=== PATIENT | female | born 1965 | race Caucasian/White ===

== ENCOUNTER 2018-03-26 11:27 | Emergency (ER) | payer OTHER ==
[~2018-03-26] VITALS: Ht 157.5 cm; Wt 79.4 kg
--- NOTE | 2018-03-26 12:05 | RAD ---
CT of the head without contrast, 03/26/2018: HISTORY: Left-sided weakness The ventricles are within normal limits in size. There is no shift of the midline structures. There is no evidence of acute intracranial hemorrhage or mass effect. There are old postsurgical changes with surgical implants involving the frontal bone at the level of the frontal sinuses. IMPRESSION: No acute intracranial abnormality is detected. Note: The findings were called to personnel in the [facility] ER at 12:01 PM on 03/26/2018. Electronically signed by: Junior Silver MD (03/26/2018 12:02 PM) [facility]
[2018-03-26 12:29] LABS: BASO % 1 % (0-3); EOS # 0.1 x10^3/uL (0.0-0.7); EOS % 2 % (0-3); HEMATOCRIT 37.5 % (36.0-47.0); HEMOGLOBIN 12.8 g/dL (12.0-15.5); LYMPH # 1.7 x10^3/uL (1.0-4.8); LYMPH % 30 % (24-48); MEAN CORPUSCULAR HEMOGLOBIN 32 pg (25-35); MEAN CORPUSCULAR HGB CONC 34 g/dL (31-37); MEAN CORPUSCULAR VOLUME 93 fL (79-100); MONO # 0.4 x10^3/uL (0.0-1.1); MONO % 7 % (0-9); NEUT # 3.3 x10^3uL (1.8-7.7); NEUT % 60 % (31-73); PLATELET COUNT 408 x10^3/uL (140-400); RED BLOOD COUNT 4.04 x10^6/uL (3.50-5.40); RED CELL DISTRIBUTION WIDTH 13.3 % (11.5-14.5); WHITE BLOOD COUNT 5.5 x10^3/uL (4.0-11.0)
--- NOTE | 2018-03-26 12:33 | RAD ---
CT LUMBAR SPINE WO CONTRAST dated 03/26/2018 11:53 AM Indication: Pain.SCIATICA, RT HIP PAIN FOR FOUR DAYS, NO SURGERY TO BACK OR RECENT INJURY.
. Comparison: 11/12/2012 Technique: Contiguous axial imaging of the lumbar spine performed with thin cut coronal and sagittal reconstruction. One or more of the following individualized dose reduction techniques were utilized for this examination: 1. Automated exposure control 2. Adjustment of the mA and/or kV according to patient size 3. Use of iterative reconstruction technique Findings: Slight anterolisthesis of L4 on L5, new from prior study. Sagittal alignment is otherwise anatomic. There is a prominent Schmorl's node at the inferior endplate of L3, new from prior exam. Additional Schmorl's nodes at the inferior endplate of L1 are new. Vertebral body heights are maintained. Mild to moderate hypertrophic change of the superior and inferior endplates throughout. At L1-L2,, there is moderate disc space narrowing with mild broad-based posterior disc osteophyte complex and mild hypertrophic change of the facet joints/ligament flavum. Central canal is narrowed to about 10 mm AP dimension. Foramina are adequate. At L2-L3, there is mild broad-based bulge with mild disc space narrowing and endplate hypertrophic changes. The central canal and foramen are adequate. At L3-L4, minimal broad-based bulge with mild hypertrophic change of the facet joints. The central canal and foramen are adequate. At L4-L5, grade 1 anterolisthesis with minimal broad-based bulge moderate hypertrophic change of the facet joints. Findings combine to result in mild central stenosis with mild to moderate right foraminal stenosis and mild left foraminal stenosis. At L5-S1, mild disc space narrowing with vacuum disc phenomenon. Metal broad-based bulge with mild hypertrophic change of the facet joints, left greater than right. There is moderate left foraminal stenosis and mild foraminal narrowing on the right. Central canal is adequate. Images of the retroperitoneum show no significant abnormality. 8mm calcific stone at the lower pole right kidney. IMPRESSION: 1. No acute bony or soft tissue abnormality. 2. Mild to moderate multilevel spondylosis, progressed from prior study. There is a degenerative listhesis at L4-L5 that is new from prior exam. Mild central stenosis and moderate right foraminal stenosis at this level. 3. Milder spondylotic changes of the remaining levels. Please see above report for full details. Electronically signed by: Andres Coyle MD (03/26/2018 12:30 PM) [id number]
[2018-03-26 12:52] LABS: ALBUMIN 4.1 g/dL (3.4-5.0); ALBUMIN/GLOBULIN RATIO 1.1 (1.0-1.7); CALCIUM 9.5 mg/dL (8.5-10.1); CREATININE 0.6 mg/dL (0.6-1.0); GFR 103.8; POTASSIUM 3.7 mmol/L (3.5-5.1); TOTAL BILIRUBIN 0.5 mg/dL (0.2-1.0); TOTAL PROTEIN 7.9 g/dL (6.4-8.2)
[2018-03-26] MEDS ORDERED: LORazepam 2 MG/ML VIAL IV ONE (13:00)
[2018-03-26] MEDS ORDERED: KETOROLAC 30 MG/ML VIAL. IV ONE (13:30)
[2018-03-26] MEDS ORDERED: methylPREDNISolone SOD SUCC PF 125 MG/2 ML VIAL. IV ONE (13:45)
[2018-03-26] MEDS ORDERED: CYCL-331 PO (14:06)
[2018-03-26] MEDS ORDERED: TRAM-48 PO (14:06)
--- NOTE | 2018-03-26 14:07 | PHYS DOC ---
Past History Past Medical History: High Cholesterol, Hypertension, Kidney Stones Past Surgical History: Cholecystectomy, , Other Alcohol Use: Rarely Drug Use: None Adult General Chief Complaint Chief Complaint: left-sided numbness HPI HPI Patient is a 53 year old female who presents with complaining of left-sided numbness. Patient states she has had left lower back and hip pain for the last 3 days without injury as a constant pain that getting worse with movement and took Tylenol and ibuprofen for the pain. Patient wasn't for today and suddenly at 0930 fifth left facial numbness with radiation to the neck and left shoulder and then left lower extremity as a constant problem without weakness that did not change since it was started less than 2 hours ago. Patient denies headache, blurred vision, nausea and vomiting, fever and chills, chest pain, shortness of breath, history of the same problem. Review of Systems Review of Systems Constitutional: Denies fever or chills [] Eyes: Denies change in visual acuity, redness, or eye pain [] HENT: Denies nasal congestion or sore throat [] Respiratory: Denies cough or shortness of breath [] Cardiovascular: No additional information not addressed in HPI [] GI: Denies abdominal pain, nausea, vomiting, bloody stools or diarrhea [] : Denies dysuria or hematuria [] Musculoskeletal: Reports back pain and joint pain Integument: Denies rash or skin lesions [] Neurologic: Denies headache, focal weakness, reports sensory changes [] Endocrine: Denies polyuria or polydipsia [] All other systems were reviewed and found to be within normal limits, except as documented in this note. Current Medications Current Medications Current Medications Medications (Trade) Dose Ordered Sig/Bob Start Time Stop Time Status Last Admin Dose Admin Ketorolac Tromethamine (Toradol 30mg Vial) 30 mg 1X ONCE 03/26/18 13:30 03/26/18 13:31 DC 03/26/18 13:36 30 MG Lorazepam (Ativan) 0.5 mg 1X ONCE 03/26/18 13:00 03/26/18 13:01 DC 03/26/18 12:49 0.5 MG Methylprednisolone Sodium Succinate (SOLU-Medrol 125MG VIAL) 125 mg 1X ONCE 03/26/18 13:45 03/26/18 13:46 DC 03/26/18 13:38 125 MG Allergies Allergies Allergies Coded Allergies Type Severity Reaction Last Updated Verified No Known Drug Allergies 03/26/18 No Physical Exam Physical Exam Constitutional: Well developed, well nourished, mild distress, non-toxic appearance. [] HENT: Normocephalic, atraumatic, bilateral external ears normal, oropharynx moist, no oral exudates, nose normal. [] Eyes: PERRLA, EOMI, conjunctiva normal, no discharge. [] Neck: Normal range of motion, no tenderness, supple, no stridor. [] Cardiovascular:Heart rate regular rhythm, no murmur [] Lungs & Thorax: Bilateral breath sounds clear to auscultation [] Abdomen: Bowel sounds normal, soft, no tenderness, no masses, no pulsatile masses. [] Skin: Warm, dry, no erythema, no rash. [] Back: No tenderness, no CVA tenderness. [] Extremities: Painful range of motion of left lower extremity, no tenderness, no cyanosis, no clubbing, ROM intact, no edema. [] Neurologic: Alert and oriented X 3, normal motor function, subjective paresthesia of left side of face and upper and lower extremity, no focal deficits noted, NIHS of 1 Psychologic: Affect normal, judgement normal, mood normal. [] Current Patient Data Vital Signs Vital Signs Date Time Temp Pulse Resp B/P (MAP) Pulse Ox O2 Delivery O2 Flow Rate FiO2 03/26/18 13:44 64 16 117/82 (94) 97 Room Air 03/26/18 11:35 97.8 Lab Results Laboratory Tests Test 03/26/18 12:02 03/26/18 12:15 Glucose (Fingerstick) 104 mg/dL (70-99) H White Blood Count 5.5 x10^3/uL (4.0-11.0) Red Blood Count 4.04 x10^6/uL (3.50-5.40) Hemoglobin 12.8 g/dL (12.0-15.5) Hematocrit 37.5 % (36.0-47.0) Mean Corpuscular Volume 93 fL (79-100) Mean Corpuscular Hemoglobin 32 pg (25-35) Mean Corpuscular Hemoglobin Concent 34 g/dL (31-37) Red Cell Distribution Width 13.3 % (11.5-14.5) Platelet Count 408 x10^3/uL (140-400) H Neutrophils (%) (Auto) 60 % (31-73) Lymphocytes (%) (Auto) 30 % (24-48) Monocytes (%) (Auto) 7 % (0-9) Eosinophils (%) (Auto) 2 % (0-3) Basophils (%) (Auto) 1 % (0-3) Neutrophils # (Auto) 3.3 x10^3uL (1.8-7.7) Lymphocytes # (Auto) 1.7 x10^3/uL (1.0-4.8) Monocytes # (Auto) 0.4 x10^3/uL (0.0-1.1) Eosinophils # (Auto) 0.1 x10^3/uL (0.0-0.7) Basophils # (Auto) 0.0 x10^3/uL (0.0-0.2) Prothrombin Time 9.9 SEC (9.4-11.4) Prothrombin Time INR 1.0 (0.9-1.1) PTT 26 SEC (23-33) Sodium Level 141 mmol/L (136-145) Potassium Level 3.7 mmol/L (3.5-5.1) Chloride Level 101 mmol/L (98-107) Carbon Dioxide Level 34 mmol/L (21-32) H Anion Gap 6 (6-14) Blood Urea Nitrogen 13 mg/dL (7-20) Creatinine 0.6 mg/dL (0.6-1.0) Estimated GFR (Cockcroft-Gault) 103.8 BUN/Creatinine Ratio 22 (6-20) H Glucose Level 102 mg/dL (70-99) H Calcium Level 9.5 mg/dL (8.5-10.1) Total Bilirubin 0.5 mg/dL (0.2-1.0) Aspartate Amino Transferase (AST) 18 U/L (15-37) Alanine Aminotransferase (ALT) 20 U/L (14-59) Alkaline Phosphatase 93 U/L (46-116) Creatine Kinase 105 U/L (26-192) Creatine Kinase MB (Mass) 1.6 ng/mL (0.0-3.6) Creatine Kinase MB Relative Index 1.5 % (0-4) Troponin I Quantitative < 0.017 ng/mL (0-0.055) Total Protein 7.9 g/dL (6.4-8.2) Albumin 4.1 g/dL (3.4-5.0) Albumin/Globulin Ratio 1.1 (1.0-1.7) EKG EKG EKG interpreted by me. EKG at 1208 showed a sinus rhythm at rate of 72, poor R- wave progress at anteroseptal leads, no acute ST and T-wave abnormalities Radiology/Procedures Radiology/Procedures [][address] [address] IMAGING REPORT Signed PATIENT: JOVITA CAMACHO ACCOUNT: [id number] : 1965 LOCATION: ER AGE: 53 SEX: F EXAM STATUS: REG ER ORD. PHYSICIAN: MARQUITA SPENCER MD REASON: left side numbness PROCEDURE: CT CODE STROKE HEAD WO CT of the head without contrast, 03/26/2018: HISTORY: Left-sided weakness The ventricles are within normal limits in size. There is no shift of the midline structures. There is no evidence of acute intracranial hemorrhage or mass effect. There are old postsurgical changes with surgical implants involving the frontal bone at the level of the frontal sinuses. IMPRESSION: No acute intracranial abnormality is detected. Note: The findings were called to personnel in the [facility] ER at 12:01 PM on 03/26/2018. Electronically signed by: Junior Silver MD (03/26/2018 12:02 PM) [facility] DICTATED AND SIGNED BY: JUNIOR SILVER MD DATE: 03/26/18 1151 CC: MARQUITA SPENCER MD; PANKAJ KIRBY ~ [address] [address] IMAGING REPORT Signed PATIENT: JOVITA CAMACHO ACCOUNT: [id number] : 1965 LOCATION: ER AGE: 53 SEX: F EXAM STATUS: REG ER ORD. PHYSICIAN: MARQUITA SPENCER MD REASON: left side numbness PROCEDURE: CT LUMBAR SPINE WO CONTRAST CT LUMBAR SPINE WO CONTRAST dated 03/26/2018 11:53 AM Indication: Pain.SCIATICA, RT HIP PAIN FOR FOUR DAYS, NO SURGERY TO BACK OR RECENT INJURY.
. Comparison: 11/12/2012 Technique: Contiguous axial imaging of the lumbar spine performed with thin cut coronal and sagittal reconstruction. One or more of the following individualized dose reduction techniques were utilized for this examination: 1. Automated exposure control 2. Adjustment of the mA and/or kV according to patient size 3. Use of iterative reconstruction technique Findings: Slight anterolisthesis of L4 on L5, new from prior study. Sagittal alignment is otherwise anatomic. There is a prominent Schmorl's node at the inferior endplate of L3, new from prior exam. Additional Schmorl's nodes at the inferior endplate of L1 are new. Vertebral body heights are maintained. Mild to moderate hypertrophic change of the superior and inferior endplates throughout. At L1-L2,, there is moderate disc space narrowing with mild broad-based posterior disc osteophyte complex and mild hypertrophic change of the facet joints/ligament flavum. Central canal is narrowed to about 10 mm AP dimension. Foramina are adequate. At L2-L3, there is mild broad-based bulge with mild disc space narrowing and endplate hypertrophic changes. The central canal and foramen are adequate. At L3-L4, minimal broad-based bulge with mild hypertrophic change of the facet joints. The central canal and foramen are adequate. At L4-L5, grade 1 anterolisthesis with minimal broad-based bulge moderate hypertrophic change of the facet joints. Findings combine to result in mild central stenosis with mild to moderate right foraminal stenosis and mild left foraminal stenosis. At L5-S1, mild disc space narrowing with vacuum disc phenomenon. Metal broad-based bulge with mild hypertrophic change of the facet joints, left greater than right. There is moderate left foraminal stenosis and mild foraminal narrowing on the right. Central canal is adequate. Images of the retroperitoneum show no significant abnormality. 8mm calcific stone at the lower pole right kidney. IMPRESSION: 1. No acute bony or soft tissue abnormality. 2. Mild to moderate multilevel spondylosis, progressed from prior study. There is a degenerative listhesis at L4-L5 that is new from prior exam. Mild central stenosis and moderate right foraminal stenosis at this level. 3. Milder spondylotic changes of the remaining levels. Please see above report for full details. Electronically signed by: Andres Coyle MD (03/26/2018 12:30 PM) [facility] DICTATED AND SIGNED BY: ANDRES COYLE MD DATE: 03/26/18 1224 CC: MARQUITA SPENCER MD; PANKAJ KIRBY ~ Course & Med Decision Making Course & Med Decision Making Pertinent Labs and Imaging studies reviewed. (See chart for details) Evaluation of patient in ER showed 53-year-old female patient with complaining of left facial and upper and lower extremity numbness about 2 hours prior to arrival to ER. Code stroke was activated. Patient had in NIHS 1 and was not a candidate for TPA as a very low NIH number. Patient treated with Ativan and here facial and upper extremity numbness resolved. She'll continue to complaining of numbness of left great toe that was related to diagnosis of sciatica neuropathy. Plan discharge patient home to diagnose of sciatica pain and instruction to apply ice on her back and follow with her primary care physician. Dragon Disclaimer Dragon Disclaimer This electronic medical record was generated, in whole or in part, using a voice recognition dictation system. Departure Departure: Impression: Primary Impression: Acute left-sided back pain with sciatica Additional Impressions: Paresthesia Spinal stenosis Disposition: 01 HOME, SELF-CARE (at 1402) Condition: IMPROVED Referrals: PANKAJ KIRBY (PCP) Patient Instructions: Sciatica, Spinal Stenosis Additional Instructions: Drink plenty of liquids Follow-up with your primary care physician in 3-5 days Return to ER if not getting better Apply ice on affected area Scripts Tramadol Hcl (ULTRAM) 50 Mg Tablet 50 MG PO PRN Q6HRS PRN for PAIN, #20 TAB Prov: MARQUITA SPENCER MD 03/26/18 Cyclobenzaprine Hcl (CYCLOBENZAPRINE HCL) 10 Mg Tablet 1 TAB PO TID, #30 TAB Prov: MARQUITA SPENCER MD 03/26/18 Problem Qualifiers MARQUITA SPENCER MD Mar 26, 2018 14:07
[2018-03-26 14:10] VITALS: BP 105/61
--- NOTE | 2018-03-26 16:05 | EKG ---
[address] [address] Test Date: 2018-03-26 Test Time: 12:08:58 Pat Name: JOVITA CAMACHO Department: Room: Gender: F Mine Inspector: : 1965 Requested By: MARQUITA SPENCER Order Number: [id number] Reading MD: Jaskaran Thakur MD Measurements Intervals [place] Rate: 72 P: 31 SC: 154 QRS: 14 QRSD: 80 T: 33 QT: 364 QTc: 400 Interpretive Statements SINUS RHYTHM Electronically Signed On 03-27-2018 11:24:55 CDT by Jaskaran Thakur MD
== END 2018-03-26 14:18 | disposition home or self-care (01) ==
LOC: ER 11:27
DX: M54.42 Lumbago with sciatica, left side (principal); R20.2 Paresthesia of skin; M48.061 Spinal stenosis, lumbar region without neurogenic claudication; M25.551 Pain in right hip; I10 Essential (primary) hypertension; E78.00 Pure hypercholesterolemia, unspecified; Z90.49 Acquired absence of other specified parts of digestive tract; Z87.442 Personal history of urinary calculi
CPT/HCPCS: 36415; 70450; 72131; 80053; 82553; 82947; 84484; 85025; 85610; 85730; 93005; 96374; 96375; 99285; J1885; J2060; J2930

== ENCOUNTER → 2019-01-08 | Day surgery (SDC) | payer OTHER ==
[~2019-01-08] MED LIST: ALBUTEROL SULFATE 2.5 MG/3 ML NEBU. NEB PRN; ASPI325T8 PO; ATROPINE 0.5 MG/5 ML DISP.SYRIN. IV PRN; CYCL-331 PO; HYDR-2145 PO; IV RINGERS SOLUTION,LACTATED 1,000 ML IV SCH; LIDOCAINE 2% PF Vial for OR 5 ML VIAL. ONE; LOSA100T2 PO; NALOXONE 0.4 MG/ML VIAL. IV PRN; OMEP20CA10 PO; ONDANSETRON PF 4 MG/2 ML VIAL. IV PRN; PROPOFOL 40 ML IV ONE; SIMV20TA3 PO; TRAM-48 PO; diphenhydrAMINE 50 MG/ML VIAL IV PRN
[2019-01-08 08:52] VITALS: BP 144/81
== END | disposition home or self-care (01) ==
LOC: SURG 06:53
PROVIDERS: ATTEND Internal Medicine Gastroenterology
DX: Z12.11 Encounter for screening for malignant neoplasm of colon (principal); K57.30 Diverticulosis of large intestine without perforation or abscess without bleeding; I10 Essential (primary) hypertension; E78.5 Hyperlipidemia, unspecified; M25.50 Pain in unspecified joint; G25.81 Restless legs syndrome; Z90.49 Acquired absence of other specified parts of digestive tract; Z98.890 Other specified postprocedural states; Z87.442 Personal history of urinary calculi
CPT/HCPCS: 45378; J2704; J7120; J2001

== ENCOUNTER → 2020-03-10 | Outpatient (CLI) | payer OTHER ==
[2019-01-08 08:52] VITALS: BP 144/81
[~2020-03-10] MED LIST changes: -ALBUTEROL SULFATE 2.5 MG/3 ML NEBU. NEB PRN; -ATROPINE 0.5 MG/5 ML DISP.SYRIN. IV PRN; -IV RINGERS SOLUTION,LACTATED 1,000 ML IV SCH; -LIDOCAINE 2% PF Vial for OR 5 ML VIAL. ONE; -NALOXONE 0.4 MG/ML VIAL. IV PRN; -OMEP20CA10 PO; +OMEP20CA16 PO; -ONDANSETRON PF 4 MG/2 ML VIAL. IV PRN; -PROPOFOL 40 ML IV ONE; +SIMV20TA18 PO; -SIMV20TA3 PO; -diphenhydrAMINE 50 MG/ML VIAL IV PRN
--- NOTE | 2020-03-10 16:37 | RAD ---
INDICATION: Osteoporosis screening. Postmenopausal screening COMPARISON: None. TECHNIQUE: Bone densitometry was performed through the lumbar spine and proximal femur. FINDINGS: Lumbar Spine: BMD: 1.46 T-Score: 2.4 Proximal Femur: BMD: 1.06 T-Score: 0.8 IMPRESSION: 1. Lumbar spine falls within the normal range. 2. Proximal femur falls within the normal range. Electronically signed by: Otoniel Ray MD (03/10/2020 4:34 PM) [id number]
--- NOTE | 2020-03-12 16:38 | RAD ---
DATE: 03/10/2020 3:06 PM EXAM: DIGITAL SCREEN BILAT W/CAD HISTORY: Screening COMPARISON: 11/22/2018 Bilateral full field craniocaudal and mediolateral oblique images were obtained using digital technique. This study was interpreted with the benefit of Computerized Aided Detection (CAD). FINDINGS: Breast Density: SCATTERED The breast parenchyma shows scattered fibroglandular densities. Breast parenchyma level B No suspicious masses, microcalcifications or architectural distortion is present to suggest malignancy in either breast. The visualized axillae are unremarkable. IMPRESSION: No mammographic evidence of malignancy. BI-RADS CATEGORY: 1 NEGATIVE RECOMMENDED FOLLOW-UP: 12M 12 MONTH FOLLOW-UP Annual screening mammography is recommended, unless clinically indicated sooner based on symptoms or change in physical exam. PQRS compliance statement: Patient information was entered into a reminder system with a target due date for the next mammogram. Mammography is a sensitive method for finding small breast cancers, but it does not detect them all and is not a substitute for careful clinical examination. A negative mammogram does not negate a clinically suspicious finding and should not result in delay in biopsying a clinically suspicious abnormality. "Our facility is accredited by the [employer] Mammography Program."
== END | disposition home or self-care (01) ==
LOC: DXRAD 14:54
PROVIDERS: ATTEND Physician Assistant Medical
DX: Z12.31 Encounter for screening mammogram for malignant neoplasm of breast (principal); Z00.00 Encounter for general adult medical examination without abnormal findings; Z13.820 Encounter for screening for osteoporosis
CPT/HCPCS: 77067; 77080